=== PATIENT | female | born 1950 | race Caucasian/White ===

== ENCOUNTER 2023-07-24 13:28 | Outpatient (REF) | payer OTHER, SELFPAY ==
[2023-07-24 16:27] LABS: Erythrocyte Sedimentation Rate 1 MM/HR (0-20)
[2023-07-28 21:49] LABS: CRP High Sensitivity 1.7 mg/L
== END 2023-07-24 13:29 | disposition home or self-care (01) ==
LOC: HO.LAB 13:28
PROVIDERS: PCP Family Medicine; Visit Provider Internal Medicine
DX: Z98.890 Other specified postprocedural states (principal)
CPT/HCPCS: 36415; 85652; 86141

== ENCOUNTER 2023-07-24 13:28 | Outpatient (AMB) | payer OTHER, SELFPAY ==
--- NOTE | 2023-07-24 13:29 | MHC.OFFVIS ---
Intake Vital Signs 07/24/23 13:35 Height 5 ft 3 in Weight 172 lb BMI 30.5 BP 140/67 H Blood Pressure Location Lt brachial Position Sitting Pulse 99 Pulse Source Pulse Oximeter Temp 97.5 F Temp Source Oral Pulse Oximetry (%) 96 Intake Visit [facility] Allergies acetaminophen Allergy (Unknown, Verified 07/24/23 13:37) Unknown Penicillins Allergy (Unknown, Verified 07/24/23 13:37) Unknown bactrim Allergy (Unknown, Uncoded 07/24/23 13:37) Unknown [facility]PI [facility] HPI Details She presents for outpatient evaluation for concern over infection. She has had removal of antibiotics spacer and placement of left reverse shoulder arthroplasty on 06/06/2023. 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 She has no fever or chills or night sweats. Patient says she had left rotator cuff surgery initially six years ago. One week after surgery screws were coming out of bone she says and had chronic pain. She had left shoulder failed rotator cuff repair and infection requiring IV antibiotics ?organism and antibiotic spacer placed 12/28/2020 After surgery on 06/06 she has not had any further pain and feels well and can move shoulder well and there is no redness or limitations She is very happy with her surgical outcome. She is not on antibiotics. She apparently is having issues with left hip now and is going for care for that. [facility] Medical History (Updated 07/26/23 @ 17:36 by Angela Sanchez MD) Osteoarthritis Mastocytosis Sjogren syndrome with inflammatory arthritis TBI (traumatic brain injury) Hypothyroid Surgical History (Updated 07/26/23 @ 17:42 by Angela Sanchez MD) History of hysterectomy History of cholecystectomy H/O shoulder surgery Review of Systems Const All systems reviewed & are unremarkable except as noted in HPI and below Physical Exam Vital Signs: Last Vital Signs Temp 97.5 F 07/24/23 13:35 Pulse 99 07/24/23 13:35 BP 140/67 H 07/24/23 13:35 Pulse Ox 96 07/24/23 13:35 BMI result Body Mass Index 30.5 Const General: cooperative HEENT Head: Yes normal to inspection Face and sinus: Yes normal facial exam Mouth: Normal oral and palatal mucosa present Teeth and gingiva: dentition normal Eyes General: appearance normal, both eyes and all related structures Pupils: Equal, round and reactive pupils present Resp Effort & Inspection: normal respiratory effort Cardio Rate: regular rate Rhythm: regular rhythm GI Palpation (GI): Soft to palpation and nontender General: Yes no CVA tenderness Back/Spine/Pelvis Back: no CVA tenderness Skin General skin exam: no rashes or lesions noted Neuro General: moves all extremities Cranial nerves: Yes Equal, round and reactive pupils present Extrem Other: left shoulder moves freely Psych Appearance: grossly normal Assessment & Plan Assessment & Plan (1) H/O shoulder surgery: Comment: She has organism which is usually stool kamlesh isolated (Collinsella aerofaciens). The organism more probably represents contamination due to type of organism and when isolated past normal time period also. She also has no symptoms relatable to shoulder and I took liberty of ordering ESR which is only 1 and not indicative of current inflammatory process at this time although with prior infections one can always appear in future. I called patient with normal ESR results. Code(s): Z98.890 - Other specified postprocedural states Plan: No further antibiotics at this time. She can continue hip evaluation at this time from infectious disease point of view ?steroid injection or other with usual precautions. Orders: Orders Erythrocyte Sedimentation Rate 07/24/23 Z98.890 - Other specified postprocedural states CRP High Sensitivity 07/24/23 Z98.890 - Other specified postprocedural states Coding Level of Care Code New Pt Level 3 (98190) Diagnoses H/O shoulder surgery Z98.890
[2023-07-24 13:35] VITALS: BP 140/67; PULSE 99; TEMP 36.4; O2SAT 96; BMI 30.5
== END 2023-07-24 15:49 | disposition home or self-care (01) ==
PROVIDERS: PCP Family Medicine; Visit Provider Internal Medicine
DX: Z98.890 Other specified postprocedural states (principal)
CPT/HCPCS: 99203